=== PATIENT | male | born 1970 | race Caucasian/White ===

== ENCOUNTER 2020-06-02 10:41 | Outpatient (CLI) | payer MEDICARE, MEDICAID | END 2020-06-02 10:42 | disposition home or self-care (01) | LOC: CSHRAD 10:41 | PROVIDERS: ATTEND Urology | DX: Q62.11 Congenital occlusion of ureteropelvic junction (principal); Z87.442 Personal history of urinary calculi | CPT/HCPCS: 74018; 76770 ==

== ENCOUNTER 2021-08-20 10:04 | Outpatient (CLI) | payer MEDICARE, MEDICAID | END 2021-08-20 10:05 | disposition home or self-care (01) | LOC: CSHCT 10:04 | PROVIDERS: ATTEND Urology | DX: N20.0 Calculus of kidney (principal); N26.1 Atrophy of kidney (terminal) | CPT/HCPCS: 74176 ==

== ENCOUNTER 2021-11-05 11:18 | Outpatient (CLI) | payer MEDICARE, MEDICAID | END 2021-11-05 11:19 | disposition home or self-care (01) | LOC: CSHCT 11:18 | PROVIDERS: ATTEND Urology | DX: N20.0 Calculus of kidney (principal); Q62.11 Congenital occlusion of ureteropelvic junction; Z96.0 Presence of urogenital implants; K63.89 Other specified diseases of intestine; K56.41 Fecal impaction | CPT/HCPCS: 74176; 76770 ==